=== PATIENT | female | born 2000 | race Two or more races ===

== ENCOUNTER 2020-04-21 09:51 | Emergency (ER) | payer OTHER ==
[~2020-04-21] VITALS: Ht 157.5 cm; Wt 39.9 kg
[2020-04-21] MEDS ORDERED: KETO10TA2 PO (14:52)
[2020-04-21] MEDS ORDERED: CYCLOBENZAPRINE5 MG PO (14:52)
== END 2020-04-21 16:05 | disposition home or self-care (01) ==
LOC: EMR PED 09:51
DX: G44.89 Other headache syndrome (principal)
CPT/HCPCS: 70470; Q9965

== ENCOUNTER 2020-08-13 16:46 | Emergency (ER) | payer OTHER ==
[~2020-08-13] VITALS: Ht 157.5 cm; Wt 45.4 kg
[~2020-08-13 16:46] MED LIST: CYCLOBENZAPRINE5 MG PO; KETO10TA2 PO
[2020-08-13] MEDS ORDERED: DOLOGESIC 500-1 EACH PO (21:28)
== END 2020-08-13 21:39 | disposition home or self-care (01) ==
LOC: EMR PED 16:46
DX: R51.9 Headache, unspecified (principal); Z11.52 Encounter for screening for COVID-19

== ENCOUNTER 2021-05-29 17:42 | Emergency (ER) | payer OTHER ==
[~2021-05-29] VITALS: Ht 154.9 cm; Wt 49.0 kg
[~2021-05-29 17:42] MED LIST changes: +DOLOGESIC 500-1 EACH PO
[2021-05-29] MEDS ORDERED: BUTALB-ACETAMI1 EACH PO (20:52)
== END 2021-05-29 20:54 | disposition home or self-care (01) ==
LOC: ER 17:42
DX: B34.9 Viral infection, unspecified (principal); R51.9 Headache, unspecified

== ENCOUNTER 2021-06-12 16:40 | Emergency (ER) | payer OTHER ==
[~2021-06-12] VITALS: Ht 154.9 cm; Wt 37.2 kg
[~2021-06-12 16:40] MED LIST changes: +BUTALB-ACETAMI1 EACH PO
== END 2021-06-12 19:06 | disposition home or self-care (01) ==
LOC: ER 16:40
DX: M54.50 Low back pain, unspecified (principal)

== ENCOUNTER 2021-07-14 19:23 | Emergency (ER) | payer OTHER ==
[~2021-07-14] VITALS: Ht 154.9 cm; Wt 43.1 kg
== END 2021-07-14 21:31 | disposition home or self-care (01) ==
LOC: ER 19:23 → EMR PED 19:27 → ER 19:27
DX: B34.9 Viral infection, unspecified (principal); R51.9 Headache, unspecified; Z20.822 Contact with and (suspected) exposure to COVID-19

== ENCOUNTER 2021-08-30 16:31 | Emergency (ER) | payer OTHER ==
[~2021-08-30] VITALS: Ht 154.9 cm; Wt 44.5 kg
[2021-08-30] MEDS ORDERED: ADVIL200 M1 PO (19:53)
[2021-08-30] MEDS ORDERED: NORFLEX100MG PO (19:53)
== END 2021-08-30 19:57 | disposition home or self-care (01) ==
LOC: ER 16:31 → EMR PED 16:38
DX: M54.50 Low back pain, unspecified (principal); Z20.822 Contact with and (suspected) exposure to COVID-19

== ENCOUNTER 2022-02-07 21:28 | Emergency (ER) | payer OTHER ==
[~2022-02-07] VITALS: Ht 157.5 cm; Wt 47.2 kg
[~2022-02-07 21:28] MED LIST changes: +ADVIL200 M1 PO; +NORFLEX100MG PO
[2022-02-08] MEDS ORDERED: KETO10TA2 PO (00:55)
[2022-02-08] MEDS ORDERED: ORPHENADRINE C100 MG PO (00:55)
== END 2022-02-08 01:07 ==
LOC: ER 21:28
DX: M62.830 Muscle spasm of back (principal); M62.838 Other muscle spasm

== ENCOUNTER 2022-03-24 10:01 | Emergency (ER) | payer OTHER ==
[~2022-03-24] VITALS: Ht 157.5 cm; Wt 47.2 kg
[~2022-03-24 10:01] MED LIST changes: +ORPHENADRINE C100 MG PO
== END 2022-03-24 15:52 | disposition home or self-care (01) ==
LOC: ER 10:01
DX: B34.9 Viral infection, unspecified (principal); J45.909 Unspecified asthma, uncomplicated; G43.909 Migraine, unspecified, not intractable, without status migrainosus

== ENCOUNTER 2022-03-27 15:55 | Emergency (ER) | payer OTHER ==
[~2022-03-27] VITALS: Ht 157.5 cm; Wt 47.2 kg
== END 2022-03-27 18:06 | disposition home or self-care (01) ==
LOC: ER 15:55
DX: A49.3 Mycoplasma infection, unspecified site (principal)

== ENCOUNTER 2022-04-05 16:21 | Emergency (ER) | payer OTHER ==
[~2022-04-05] VITALS: Ht 180.3 cm; Wt 47.2 kg
== END 2022-04-05 17:52 | disposition home or self-care (01) ==
LOC: ER 16:21
DX: J06.9 Acute upper respiratory infection, unspecified (principal); Z20.822 Contact with and (suspected) exposure to COVID-19

== ENCOUNTER 2022-06-18 03:09 | Emergency (ER) | payer OTHER ==
[~2022-06-18] VITALS: Ht 157.5 cm; Wt 47.2 kg
== END 2022-06-18 06:29 | disposition home or self-care (01) ==
LOC: ER 03:09
DX: R10.13 Epigastric pain (principal); K29.60 Other gastritis without bleeding; R10.9 Unspecified abdominal pain; R11.10 Vomiting, unspecified